=== PATIENT | female | born 1990 | race Caucasian/White ===

== ENCOUNTER 2025-06-14 11:41 | Inpatient (IN) | payer OTHER, MEDICAID ==
[~2025-06-14] VITALS: Ht 165.1 cm; Wt 94.3 kg
[2025-06-14 11:51] VITALS: O2SAT 100
[2025-06-14] MEDS ORDERED: KETOROLAC 15MG/ML VIAL IV ONE (12:15)
[2025-06-14 12:56] LABS: BASOPHILS % 1.0 % (0.0-2.0); EOSINOPHILS % 7.0 % (0.0-5.0); HEMATOCRIT. 35.5 % (36.0-48.0); HEMOGLOBIN. 11.2 g/dL (12.0-16.0); LYMPHOCYTES % 16.7 % (20.0-50.0); MEAN PLATELET VOLUME 9.2 fl (7.4-10.4); MONOCYTES % 7.5 % (2.0-8.0); NEUTROPHILS % 67.8 % (40.0-76.0); PLATELET 316 x1000/uL (130-400); RED BLOOD CELL COUNT 4.61 mill/uL (4.2-5.4); RED CELL DISTRIBUTION WIDTH 16.7 % (11.6-14.6)
[2025-06-14 13:11] LABS: CREATININE 0.7 mg/dL (0.6-1.0); UREA NITROGEN BLOOD 7 mg/dL (9-23)
[2025-06-14 13:15] LABS: PROTEIN TOTAL 7.1 g/dL (6.0-8.3)
[2025-06-14 13:16] LABS: HCG SCREEN NEGATIVE
[2025-06-14 13:17] LABS: ASPARTATE AMINOTRANSFERASE 14 IU/L (<34); BILIRUBIN DIRECT < 0.1 mg/dL (<=3.0); BILIRUBIN TOTAL 0.2 mg/dL (0.1-1.0)
[2025-06-14 13:20] LABS: INR 1.0
[2025-06-14 13:34] LABS: CLARITY URINE CLEAR (CLEAR); COLOR URINE YELLOW (YELLOW); GLUCOSE URINE NEGATIVE (NEGATIVE); KETONES URINE NEGATIVE (NEGATIVE); LEUKOCYTE ESTERASE URINE 1+ (NEGATIVE); NITRITE URINE NEGATIVE (NEGATIVE); OCCULT BLOOD URINE NEGATIVE (NEGATIVE); PH URINE 7.0 (4.5-8.0); PROTEIN URINE NEGATIVE (NEGATIVE); SPECIFIC GRAVITY URINE 1.025 (1.005-1.030); UROBILINOGEN URINE 1.0 E.U./dL (0.2-1.0)
[2025-06-14 13:52] LABS: MUCUS URINE 1+ /lpf (< = 2+); SQUAMOUS EPITHELIAL CELL URINE 3+ /lpf (RARE/1+)
[2025-06-14 13:54] LABS: BACTERIA URINE 1+
[2025-06-14 13:56] LABS: RBC URINE 0-2 /hpf (0-2)
[2025-06-14] MEDS: SODIUM CHLORIDE 0.9% 1,000 ML IV ONE (14:43)
[2025-06-14] MEDS: KETOROLAC 30MG/ML VIAL IV NR (14:45)
[2025-06-14 15:40] VITALS: BP 100/53; PULSE 73; RESP 18; TEMP 37.252
[2025-06-14 16:00] VITALS: BP 100/53; PULSE 73; RESP 18; TEMP 37.2; O2SAT 100
[2025-06-14] MEDS ORDERED: DOCUSATE SODIUM 100MG CAPSULE PO PRN (16:15)
[2025-06-14] MEDS ORDERED: ACETAMINOPHEN 325MG TABLET PO PRN ×2 (16:15)
[2025-06-14] MEDS ORDERED: ONDANSETRON HCL 4MG/2ML INJ IV PRN (16:15)
[2025-06-14] MEDS ORDERED: CLONIDINE 0.1MG TABLET PO PRN (16:15)
[2025-06-14] MEDS ORDERED: PANTOPRAZOLE SODIUM 40 MG/VIAL IV SCH (16:15)
[2025-06-14] MEDS ORDERED: IPRATROPIUM/ALBUTEROL 0.5-3(2.5)MG/3ML NEB HHN PRN (16:15)
[2025-06-14] MEDS: SUCRALFATE 1G TABLET PO SCH (17:53)
[2025-06-14] MEDS ORDERED: INFLUENZA VACCINE 05/PF 0.5 ML SYRINGE IM ONE (18:30)
[2025-06-14 20:00] VITALS: BP 93/40; PULSE 74; RESP 19; TEMP 35.9; O2SAT 98
[2025-06-14] MEDS ORDERED: *PATIENT'S OWN MEDICATION STORAGE XX SCH (20:15)
[2025-06-14] MEDS: FAMOTIDINE 20MG TABLET PO SCH (20:35)
[2025-06-14 20:45] LABS: *AMPHETAMINES SCREEN URINE NEGATIVE (NEGATIVE); *BARBITURATES SCREEN URINE NEGATIVE (NEGATIVE); *BENZODIAZEPINES SCREEN URINE NEGATIVE (NEGATIVE); *COCAINE SCREEN URINE NEGATIVE (NEGATIVE); CANNABINOID URINE SCREEN NEGATIVE (NEGATIVE); CLARITY URINE CLEAR (CLEAR); COLOR URINE YELLOW (YELLOW); GLUCOSE URINE NEGATIVE (NEGATIVE); KETONES URINE NEGATIVE (NEGATIVE); LEUKOCYTE ESTERASE URINE 1+ (NEGATIVE); METHADONE URINE SCREEN NEGATIVE (NEGATIVE); NITRITE URINE NEGATIVE (NEGATIVE); OCCULT BLOOD URINE NEGATIVE (NEGATIVE); OPIATES URINE SCREEN NEGATIVE (NEGATIVE); PH URINE 7.5 (4.5-8.0); PHENCYCLIDINE URINE SCREEN NEGATIVE (NEGATIVE); PROTEIN URINE NEGATIVE (NEGATIVE); SPECIFIC GRAVITY URINE 1.011 (1.005-1.030); UROBILINOGEN URINE 0.2 E.U./dL (0.2-1.0)
[2025-06-14 20:46] LABS: ECSTASY MDMA SCREEN URINE NEGATIVE (NEGATIVE)
[2025-06-14 21:04] LABS: BACTERIA URINE TRACE; RBC URINE NONE SEEN /hpf (0-2); SQUAMOUS EPITHELIAL CELL URINE FEW /lpf (RARE/1+)
[2025-06-15] VITALS: BP 119/42; PULSE 83; RESP 18; TEMP 36.3; O2SAT 96
[2025-06-15 04:00] VITALS: BP 112/46; PULSE 79; RESP 18; TEMP 35.9; O2SAT 95
[2025-06-15 08:00] VITALS: BP 110/51; PULSE 76; RESP 18; TEMP 36.1; O2SAT 97
[2025-06-15 11:06] LABS: CREATININE 0.7 mg/dL (0.6-1.0); TRIGLYCERIDE 163 mg/dL (0-150)
[2025-06-15 11:07] LABS: LDL CHOLESTEROL 109 mg/dL (5-100); UREA NITROGEN BLOOD 6 mg/dL (9-23)
[2025-06-15 11:11] LABS: T4 FREE 1.18 ng/dL (0.89-1.76)
[2025-06-15 12:00] VITALS: BP 108/47; PULSE 71; RESP 18; TEMP 36.2; O2SAT 96
[2025-06-15 13:38] LABS: BASOPHILS % 1.0 % (0.0-2.0); EOSINOPHILS % 7.7 % (0.0-5.0); HEMATOCRIT. 37.1 % (36.0-48.0); HEMOGLOBIN. 12.0 g/dL (12.0-16.0); LYMPHOCYTES % 19.7 % (20.0-50.0); MEAN PLATELET VOLUME 9.7 fl (7.4-10.4); MONOCYTES % 10.0 % (2.0-8.0); NEUTROPHILS % 61.6 % (40.0-76.0); PLATELET 316 x1000/uL (130-400); RED BLOOD CELL COUNT 4.89 mill/uL (4.2-5.4); RED CELL DISTRIBUTION WIDTH 16.8 % (11.6-14.6)
[2025-06-15 16:00] VITALS: BP 105/44; PULSE 75; RESP 18; TEMP 36.3; O2SAT 97
[2025-06-15 20:00] VITALS: BP 104/56; PULSE 73; RESP 18; TEMP 36.3; O2SAT 99
[2025-06-16] VITALS: BP 112/54; PULSE 76; RESP 18; TEMP 36.4; O2SAT 98
[2025-06-16 04:00] VITALS: BP 104/54; PULSE 81; RESP 18; TEMP 36.4; O2SAT 99
[2025-06-16 08:00] VITALS: BP 110/50; PULSE 72; RESP 17; TEMP 35.6; O2SAT 100
[2025-06-16 08:35] LABS: BASOPHILS % 0.8 % (0.0-2.0); EOSINOPHILS % 8.1 % (0.0-5.0); HEMATOCRIT. 37.0 % (36.0-48.0); HEMOGLOBIN. 11.8 g/dL (12.0-16.0); LYMPHOCYTES % 18.8 % (20.0-50.0); MEAN PLATELET VOLUME 10.1 fl (7.4-10.4); MONOCYTES % 8.5 % (2.0-8.0); NEUTROPHILS % 63.8 % (40.0-76.0); PLATELET 289 x1000/uL (130-400); RED BLOOD CELL COUNT 4.87 mill/uL (4.2-5.4); RED CELL DISTRIBUTION WIDTH 16.8 % (11.6-14.6)
[2025-06-16 08:43] LABS: CREATININE 0.7 mg/dL (0.6-1.0); PROTEIN TOTAL 6.8 g/dL (6.0-8.3); UREA NITROGEN BLOOD 9 mg/dL (9-23)
[2025-06-16 08:45] LABS: ASPARTATE AMINOTRANSFERASE 13 IU/L (<34); BILIRUBIN TOTAL 0.4 mg/dL (0.1-1.0)
[2025-06-16 08:54] LABS: INR 1.0
[2025-06-16 12:00] VITALS: BP 101/47; PULSE 73; RESP 18; TEMP 37.4; O2SAT 97
[2025-06-16] MEDS ORDERED: FENTANYL CITRATE/PF 50MCG/ML 2ML VIAL IV PRN (14:00)
[2025-06-16] MEDS ORDERED: PROPOFOL 200MG/20ML VIAL IV ONE (14:08)
[2025-06-16] MEDS ORDERED: MIDAZOLAM HCL 2 MG/2 ML VIAL ONE (14:08)
[2025-06-16] MEDS ORDERED: ONDANSETRON HCL 4MG/2ML INJ IV PRN (14:15)
[2025-06-16] MEDS ORDERED: LIDOCAINE HCL/PF 1% 10 MG/ML 5ML VIAL ONE (14:27)
[2025-06-16 16:00] VITALS: BP 99/48; PULSE 69; RESP 18; TEMP 35.7; O2SAT 99
[2025-06-16] MEDS ORDERED: OMEP40CA20 MT (17:47)
[2025-06-16] MEDS ORDERED: SUCR1TAB30 PO (17:47)
[2025-06-16 20:13] VITALS: BP 100/56; PULSE 79; RESP 18; TEMP 97.2
[2025-06-17] MEDS ORDERED: SUCR1TAB30 PO (07:22)
== END 2025-06-16 21:30 | disposition home or self-care (01) | DRG 241 ==
LOC: ER 13:14 → 4WST 13:58 → EDBEDREQ 14:03 → EDBEDREQTM 14:03
PROVIDERS: ADMIT Internal Medicine; ATTEND Internal Medicine
PROC: 0DB78ZX Excision of Stomach, Pylorus, Via Natural or Artificial Opening Endoscopic, Diagnostic (ICD-10-PCS; principal; 2025-06-16)
DX: K29.71 Gastritis, unspecified, with bleeding (principal); D50.9 Iron deficiency anemia, unspecified; K31.811 Angiodysplasia of stomach and duodenum with bleeding; K76.0 Fatty (change of) liver, not elsewhere classified; K29.70 Gastritis, unspecified, without bleeding; K21.9 Gastro-esophageal reflux disease without esophagitis; Z79.899 Other long term (current) drug therapy
CPT/HCPCS: 36415; 74176; 76700; 80048; 80053; 80061; 80076; 80305; 81003; 82270; 83735; 84439; 84443; 84703; 85025; 86850; 86900; 88305; 93005; 99285; J1885; J2003; J2250; J2470; J2704; J7030